=== PATIENT | female | born 1965 | race Caucasian/White ===

== ENCOUNTER 2016-09-09 10:25 | Emergency (ER) | payer OTHER ==
[2016-09-09 10:30] VITALS: BP 141/88; PULSE 67; TEMP 97.9; BMI 24.4
[2016-09-09] MEDS ORDERED: KETOROLAC TROMETHAMINE 60 MG/2 ML VIAL IM ONE (12:13)
[2016-09-09] MEDS ORDERED: CYCLOBENZAPRINE HCL 10 MG TABLET (FP) PO ONE (12:14)
[2016-09-09] MEDS ORDERED: KETOROLAC TROMETHAMINE 60 MG/2 ML VIAL ONE (12:15)
--- NOTE | 2016-09-09 12:20 | PDOC ---
History of Present Illness - General Chief Complaint: Back Pain Stated Complaint: LOWER BACK PAIN Time Seen by Provider: 09/09/16 11:54 History Source: Patient Exam Limitations: No Limitations - History of Present Illness Initial Comments: 09/09/16 12:17 CHIEF COMPLAINT: Lower back pain right sided HISTORY OF PRESENT ILLNESS: Patient is a 51-year-old female with a history of seizures last 6 months ago and anemia here today due to right sided lower back pain that occurred suddenly as patient was standing and turned her torso quickly towards the left. Patient reports that pain is worse with movement or ambulation. Patient denies any radiation of pain down the legs or any numbness of legs or any saddle anesthesia. Patient denies having any previous back issues in the past. Patient reports that pain is aching and is currently an 8 out of 10. 09/09/16 12:19 09/09/16 12:20 Occurred: reports: this morning Severity: reports: moderate Pain Location: reports: back (right sided lower back ) Method of Injury: Yes: other (turning at torso laterally at work today ) Modifying Factors: improves with: immobilization Loss of Consciousness: no loss of consciousness Associated Symptoms (Fall): muscle spasms (right lower back ) Past History - Past Medical History Allergies/Adverse Reactions: Allergies Allergy/AdvReac Type Severity Reaction Status Date / Time No Known Allergies Allergy Verified 09/09/16 10:30 Home Medications: Ambulatory Orders Naproxen [Naprosyn -] 500 mg PO BID PRN #14 tablet MDD 2 09/09/16 Anemia: Yes (vitamin D level low) Seizures: Yes (6MONTHS AGO WAS LAST) - Surgical History Abdominal Surgery: (UTERUS REMOVED) Cholecystectomy: Yes - Immunization History Immunization Up to Date: Yes - Psycho/Social/Smoking Cessation Hx Anxiety: No Suicidal Ideation: No Smoking Status: No Smoking History: Never smoked Number of Cigarettes Smoked Daily: 0 Hx Alcohol Use: No Drug/Substance Use Hx: No Substance Use Type: None Hx Substance Use Treatment: No Review of Systems - Review of Systems Able to Perform ROS?: Yes Constitutional: No: Symptoms Reported HEENTM: No: Symptoms Reported Respiratory: No: Symptoms reported Cardiac (ROS): No: Symptoms Reported ABD/GI: No: Symptoms Reported : No: Symptoms Reported Musculoskeletal: Yes: Back Pain (right sided lower back pain ) Integumentary: No: Symptoms Reported Neurological: No: Symptoms reported *Physical Exam - Vital Signs Last Vital Signs Temp Pulse Resp BP Pulse Ox 97.9 F 67 16 141/88 99 09/09/16 10:26 09/09/16 10:26 09/09/16 10:26 09/09/16 10:09/09/16 10:26 - Physical Exam General Appearance: Yes: Appropriately Dressed Respiratory/Chest: positive: Lungs Clear, Normal Breath Sounds. negative: Chest Tender, Respiratory Distress Cardiovascular: positive: Regular Rhythm, Regular Rate, S1, S2 Musculoskeletal: positive: Normal Inspection, Decreased Range of Motion (with flexion at waist ), Muscle Spasm (rt. lumbar paraspinal muscles ). negative: CVA Tenderness, CVA Tenderness (R), CVA Tenderness (L), Vertebral Tenderness Extremity: positive: Normal Capillary Refill, Normal Inspection, Normal Range of Motion Integumentary: positive: Normal Color Neurologic: positive: Alert, Normal Response, Motor Strength 5/5 (legs b/ll ), Respond to painful stimul, Responsive, Other (negative SLR b/l ). negative: Sensory Deficit (b/l legs ) Deep Tendon Reflexes: Ankle (L): 4+, Ankle (R): 4+, Knee (L): 4+, Knee (R): 4+ Medical Decision Making - Medical Decision Making 09/09/16 12:19 Patient is a 51-year-old female with a history of seizures last 6 months ago and anemia here today due to right sided lower back pain that occurred suddenly as patient was standing and turned her torso quickly towards the left. Patient reports that pain is worse with movement or ambulation. Patient denies any radiation of pain down the legs or any numbness of legs or any saddle anesthesia. Patient denies having any previous back issues in the past. Patient reports that pain is aching and is currently an 8 out of 10. Right sided lower back pain with muscle spasm Plan: Toradol milligrams IM now flexeril 10 mg po now 09/09/16 13:23 feeling much better will discharge to home naprosyn 500 mg bid prn # 14 tabs follow up with ortho *DC/Admit/Observation/Transfer Diagnosis at time of Disposition: Low back pain Qualifiers: Chronicity: acute Back pain laterality: right Sciatica presence: without sciatica Qualified Code(s): M54.5 - Low back pain - Discharge Dispostion Disposition: HOME Condition at time of disposition: Stable - Patient Instructions Additional Instructions: Follow-up with orthopedist if pain continues Return to emergency room if any numbness of groin or legs or weakness of legs or any incontinency Avoid any strenuous activities or exercise When you are turning from your way she must turn your body towards the direction that she will return in incentive twisting action her waist Patient voiced understanding of discharge instructions and all questions were answered
[2016-09-09] MEDS ORDERED: CYCLOBENZAPRINE HCL 10 MG TABLET (FP) ONE (12:21)
== END 2016-09-09 13:30 | disposition home or self-care (01) ==
LOC: JERFT 10:25
PROC: 3E0233Z Introduction of Anti-inflammatory into Muscle, Percutaneous Approach (ICD-10-PCS; principal; 2016-09-09)
DX: M54.5 Low back pain (principal); X58.XXXA Exposure to other specified factors, initial encounter; Y93.89 Activity, other specified; Y92.9 Unspecified place or not applicable; D64.9 Anemia, unspecified
CPT/HCPCS: 96372; 99281-25

== ENCOUNTER 2016-11-27 19:24 | Emergency (ER) | payer OTHER ==
[2016-11-27 19:32] VITALS: BP 137/72; PULSE 88; TEMP 98.4; BMI 55.0
--- NOTE | 2016-11-27 19:49 | PDOC ---
History of Present Illness - General History Source: Patient, Family Exam Limitations: No Limitations - History of Present Illness Initial Comments: 11/27/16 19:49 The patient is a 51 year old female, with a significant past medical history of seizures and anemia, who presents to the emergency department with right sided abdominal pain that radiates to her back. For about a few days. The reports recently her pain has started to radiate to her upper back, chest, and RUE area. She also complains of having nausea associated with her pain. The patient reports about 6 months ago having an Ultrasound that showed an inflamed liver. She denies recent fevers, chills, headache or dizziness. She denies recent vomit , diarrhea or constipation. She denies recent dysuria, frequency, urgency or hematuria. She denies recent shortness of breath. PAST MEDICAL HISTORY: See HPI PAST SURGICAL HISTORY: Cholecystectomy FAMILY HISTORY: No pertinent history. SOCIAL HISTORY: Patient lives with family and is employed. MEDICATIONS: Reviewed. ALLERGIES: As per nursing notes. ROS General: No fevers or chills, no weakness, no weight loss HEENT: No change in vision. No sore throat. No ear pain CardioVascular: No chest pain or shortness of breath Respiratory:No cough, or wheezing. Gastrointestinal: +abdominal pain and nausea. No vomiting, diarrhea or constipation. No rectal bleeding Genitourinary: No dysuria, hematuria, or frequency Musculoskeletal: No joint or muscle pain or swelling Neurologic: No headache, vertigo, dizziness or loss of consciousness Psychiatric: No depression Skin: No rashes or easy bruising Endocrine: no increased thirst or abnormal weight change Allergic: no skin or latex allergy All other systems reviewed and normal Exam: General: Well-nourished well-developed individual, no acute distress HEENT: Throat: Normal, tonsils normal, no erythema or exudate Neck: Supple, no meningeal signs, no lymphadenopathy Eyes: Pupils equal reactive and round, extraocular motion intact Chest: Nontender to palpation Cardiac: S1-S2 normal, regular rate and rhythm, no murmurs rubs or gallops Respiratory: Lungs clear to auscultation bilateral Abdomen: Tenderness RUQ. No guarding or rebound. Soft, nondistended, normal bowel sounds. Extremities: Warm, dry, no cyanosis, clubbing, or edema Skin: No rashes Neuro: Alert and oriented x3, nonfocal exam, grossly intact, normal gait Psych: Normal mood and affect <Jonathan Fowler - Last Filed: 11/27/16 19:49> - General History Source: Patient Exam Limitations: No Limitations - History of Present Illness Initial Comments: 11/27/16 21:58 A portion of this note was documented by scribe services under my direction. I have reviewed the details of the note, within reason, and agree with the documentation. The case summary and management plan written by me. EKG shows normal sinus rhythm at a rate of [address]-T wave changes questionable Q's in V1 and V2 otherwise normal EKG Chest x-ray reviewed by me no acute pathology Assessment and plan: This is a 51-year-old female who comes in complaining of pain all along her whole right side including shoulder, back, flank chest and abdomen. Patient had a cardiogram, complete workup including CBC, comp, d-dimer and cardiac enzymes. Patient also had a chest x-ray. Patient's workup was negative. Patient was given Toradol and pain was much improved. Patient discharged home told she can continue to take ibuprofen for the pain and follow-up with her doctor tomorrow morning. <Edwige Azul I - Last Filed: 11/27/16 22:00> - General Chief Complaint: Pain Stated Complaint: R SIDED ABD PAIN RAD TO BACK Time Seen by Provider: 11/27/16 19:26 Past History <Jonathan Fowler - Last Filed: 11/27/16 19:49> - Past Medical History Anemia: Yes (vitamin D level low) Seizures: Yes (6MONTHS AGO WAS LAST) - Surgical History Abdominal Surgery: (UTERUS REMOVED) Cholecystectomy: Yes - Immunization History Immunization Up to Date: Yes - Psycho/Social/Smoking Cessation Hx Anxiety: No Suicidal Ideation: No Smoking Status: No Smoking History: Unknown if ever smoked Have you smoked in the past 12 months: No Number of Cigarettes Smoked Daily: 0 Information on smoking cessation initiated: No Hx Alcohol Use: No Drug/Substance Use Hx: No Substance Use Type: None Hx Substance Use Treatment: No <Edwige Azul I - Last Filed: 11/27/16 22:00> - Past Medical History Allergies/Adverse Reactions: Allergies Allergy/AdvReac Type Severity Reaction Status Date / Time No Known Allergies Allergy Verified 09/09/16 10:30 Home Medications: Ambulatory Orders OXcarbazepine [Trileptal] 300 mg PO BID 11/27/16 *Physical Exam - Vital Signs Last Vital Signs Temp Pulse Resp BP Pulse Ox 98.4 F 88 14 137/72 98 11/27/16 19:27 11/27/16 19:27 11/27/16 19:27 11/27/16 19:27 11/27/16 19:27 <Jonathan Fowler - Last Filed: 11/27/16 19:49> - Vital Signs Last Vital Signs Temp Pulse Resp BP Pulse Ox 98.4 F 88 14 137/72 98 11/27/16 19:27 11/27/16 19:27 11/27/16 19:27 11/27/16 19:27 11/27/16 19:27 <Edwige Azul I - Last Filed: 11/27/16 22:00> ED Treatment Course - LABORATORY CBC & Chemistry Diagram: 11/27/16 19:51 11/27/16 19:51 <Edwige Azul I - Last Filed: 11/27/16 22:00> *DC/Admit/Observation/Transfer - Attestations Scribe Attestion: 11/27/16 19:49 Documentation prepared by Jonathan Fowler, acting as director medical surgical for Edwige Azul MD. <Jonathan Fowler - Last Filed: 11/27/16 19:49> - Discharge Dispostion Admit: No <Edwige Azul I - Last Filed: 11/27/16 22:00> Diagnosis at time of Disposition: Muscular abdominal pain in right flank - Discharge Dispostion Disposition: HOME Condition at time of disposition: Good - Patient Instructions Additional Instructions: For the pain take ibuprofen 3 tablets 3 times a day with food don't take on an empty stomach. Follow-up with your doctor in 1 week if not better Return to the emergency department immediately with ANY new, persistent or worsening symptoms. Continue any medications as previously prescribed by your physician. You should follow up with your primary doctor as soon as possible regarding today's emergency department visit. . Please make sure your doctor reviews the results of your emergency evaluation. Thank you for coming to the Emergency Department today for your care. It was a pleasure to see you today. Please note that your evaluation is INCOMPLETE until you follow-up with your doctor.
[2016-11-27] MEDS ORDERED: SODIUM CHLORIDE 1,000 ML IV ONE (19:53)
[2016-11-27] MEDS ORDERED: ONDANSETRON *ODT* 4 MG TABLET SL ONE (19:53)
[2016-11-27] MEDS ORDERED: KETOROLAC TROMETHAMINE 30 MG/1 ML VIAL IVPUSH ONE (19:53)
[2016-11-27] MEDS ORDERED: KETOROLAC TROMETHAMINE 30 MG/1 ML VIAL ONE (19:57)
[2016-11-27] MEDS ORDERED: ONDANSETRON 4 MG/2 ML VIAL ONE (19:57)
[2016-11-27 20:21] LABS: URINE APPEARANCE Clear; URINE BILIRUBIN Negative (NEGATIVE); URINE BLOOD Negative (NEGATIVE); URINE GLUCOSE (UA) Negative (NEGATIVE); URINE KETONE Trace (NEGATIVE); URINE LEUK ESTERASE Trace (NEGATIVE); URINE NITRITE Positive (NEGATIVE); URINE PROTEIN Negative (NEGATIVE); URINE UROBILINOGEN 0.2 E.U/dl (0.2-1.0)
[2016-11-27 20:22] LABS: URINE COLOR YELLOW
[2016-11-27 20:29] LABS: EOSINOPHIL 7.7 % (0-4.5); MCHC 34.3 g/dl (32.0-36.0); MEAN CELL VOLUME 90.4 fl (80-96); MEAN PLT VOLUME 7.7 fl (7.5-11.1); NEUTROPHILS 40.4 % (42.8-82.8); PLATELET COUNT 282 K/MM3 (134-434); RDW 12.7 % (11.6-15.6); WHITE BLOOD COUNT 7.7 K/mm3 (4.0-10.8)
[2016-11-27 20:41] LABS: ALBUMIN 4.1 g/dl (3.5-5.0); ALK PHOS 80 U/L (32-92); ANION GAP 9 (8-16); BILIRUBIN,TOTAL 0.5 mg/dl (0.2-1.0); CALCIUM 8.9 mg/dl (8.4-10.2); CO2 27 mmol/L (22-28); CREATININE 0.7 mg/dl (0.6-1.3); GLUCOSE,RANDOM 150 mg/dl (74-106); SGOT/AST 31 U/L (10-42); SGPT/ALT 32 U/L (10-40); TOT PROT 6.7 g/dl (6.4-8.3)
[2016-11-27 20:42] LABS: CPK(DFH) 339 IU/L (26-140)
[2016-11-27 21:04] LABS: TROPONIN I (DFP) < 0.03 ng/ml (0.03-0.50)
[2016-11-27 21:05] LABS: CK MB 1.1 ng/ml (0.3-4.0)
--- NOTE | 2016-11-28 12:57 | EKG ---
Test Reason : Blood Pressure : / mmHG Vent. Rate : 066 BPM Atrial Rate : 066 BPM P-R Int : 164 ms QRS Dur : 088 ms QT Int : 428 ms P-R-T Axes : 040 061 058 degrees QTc Int : 448 ms NORMAL SINUS RHYTHM CANNOT RULE OUT SEPTAL INFARCT (CITED ON OR BEFORE 30-AUG-2009) ABNORMAL ECG WHEN COMPARED WITH ECG OF 16-JUN-2012 22:39, NO SIGNIFICANT CHANGE WAS FOUND Confirmed by ALYSHA ROJAS MD ([id number]) on 11/28/2016 12:57:28 PM Referred By: MD BOND Confirmed By:ALYSHA ROJAS MD
== END 2016-11-27 22:21 | disposition home or self-care (01) ==
LOC: FER 19:24
PROC: 3E0333Z Introduction of Anti-inflammatory into Peripheral Vein, Percutaneous Approach (ICD-10-PCS; principal; 2016-11-27)
PROC: 3E0337Z Introduction of Electrolytic and Water Balance Substance into Peripheral Vein, Percutaneous Approach (ICD-10-PCS; 2016-11-27)
DX: R10.31 Right lower quadrant pain (principal); M79.1 Myalgia; D64.9 Anemia, unspecified
CPT/HCPCS: 36415; 71010-TC; 80053; 81003; 82550; 82553; 83690; 84484; 85025; 85379; 93005; 96361; 96374; 99284-25

== ENCOUNTER 2018-02-14 15:42 | Emergency (ER) | payer OTHER ==
[2018-02-14 15:45] VITALS: BMI 24.4
--- NOTE | 2018-02-14 16:12 | PDOC ---
History of Present Illness - General Chief Complaint: Sore Throat Stated Complaint: THROAT PAIN - History of Present Illness Initial Comments: 52-year-old female with history of seizures presents for evaluation of throat pain which radiates down her arms for 2 days however today's getting worse. She has no other associated symptoms. Her pain is exacerbated with deep breaths minimally relieved with rest it's been constant over the last 2 days. She points to the central part of her throat as well as the upper portion of her anterior chest wall as the areas of her discomfort. 02/14/18 16:10 Past History - Past Medical History Allergies/Adverse Reactions: Allergies Allergy/AdvReac Type Severity Reaction Status Date / Time No Known Allergies Allergy Verified 02/14/18 15:45 Home Medications: Ambulatory Orders OXcarbazepine [Trileptal] 300 mg PO BID 11/27/16 Anemia: Yes (vitamin D level low) COPD: No Seizures: Yes (6MONTHS AGO WAS LAST) - Surgical History Abdominal Surgery: (UTERUS REMOVED) Cholecystectomy: Yes - Immunization History Immunization Up to Date: Yes - Suicide/Smoking/Psychosocial Hx Smoking Status: No Smoking History: Unknown if ever smoked Have you smoked in the past 12 months: No Number of Cigarettes Smoked Daily: 0 Hx Alcohol Use: No Drug/Substance Use Hx: No Substance Use Type: None Hx Substance Use Treatment: No Review of Systems - Review of Systems HEENTM: Yes: Throat Pain Cardiac (ROS): Yes: Chest Pain All Other Systems: Reviewed and Negative *Physical Exam - Vital Signs Last Vital Signs Temp Pulse Resp BP Pulse Ox 97.9 F 67 18 129/80 99 02/14/18 15:43 02/14/18 15:43 02/14/18 15:43 02/14/18 15:43 02/14/18 15:43 - Physical Exam Comments: GENERAL: The patient is awake, alert, and fully oriented, in no acute distress. HEAD: Normal with no signs of trauma. EYES: Pupils equal, round and reactive to light, extraocular movements intact, sclera anicteric, conjunctiva clear. ENT: Ears normal, nares patent, oropharynx clear without exudates. Moist mucous membranes. NECK: Normal range of motion, supple without lymphadenopathy, JVD, or masses. LUNGS: Breath sounds equal, clear to auscultation bilaterally. No wheezes, and no crackles. HEART: Regular rate and rhythm, normal S1 and S2 without murmur, rub or gallop. ABDOMEN: Soft, nontender, normoactive bowel sounds. No guarding, no rebound. No masses. EXTREMITIES: Normal range of motion, no edema. No clubbing or cyanosis. No cords, erythema, or tenderness. NEUROLOGICAL: Cranial nerves II through XII grossly intact. Normal speech, normal gait. PSYCH: Normal mood, normal affect. SKIN: Warm, Dry, normal turgor, no rashes or lesions noted. 02/14/18 16:11 ED Treatment Course - RADIOLOGY Radiology Studies Ordered: Category Date Time Status CHEST PA & LAT [RAD] Stat Radiology 02/14/18 16:10 Ordered Medical Decision Making - Medical Decision Making Given her age and symptoms I feel this should be a cardiac workup I will transfer to the main emergency room. 02/14/18 16:11 *DC/Admit/Observation/Transfer Diagnosis at time of Disposition: Throat pain in adult - Referrals - Patient Instructions - Post Discharge Activity
[2018-02-14 16:31] LABS: BASO % 0.5 % (0-2.0); EOS % 5.7 % (0-4.5); HEMATOCRIT 42.8 % (32.4-45.2); HEMOGLOBIN 14.4 GM/dL (10.7-15.3); LYMPH % 32.8 % (8-40); MCH 30.2 pg (25.7-33.7); MCHC 33.6 g/dl (32.0-36.0); MEAN CELL VOLUME 89.7 fl (80-96); MEAN PLT VOLUME 7.7 fl (7.5-11.1); MONO % 6.4 % (3.8-10.2); NEUT % 54.6 % (42.8-82.8); PLATELET COUNT 283 K/MM3 (134-434); RBC 4.77 M/mm3 (3.60-5.2); RDW 13.1 % (11.6-15.6)
[2018-02-14 16:53] LABS: ALBUMIN 4.5 g/dl (3.4-5.0); ANION GAP 8 (8-16); BILIRUBIN,TOTAL 0.3 mg/dL (0.2-1.0); BLOOD UREA NITROGEN 14 mg/dL (7-18); CHLORIDE 107 mmol/L (98-107); CO2 27 mmol/L (21-32); CREATININE 0.7 mg/dL (0.55-1.02); GLUCOSE,RANDOM 100 mg/dL (74-106); POTASSIUM 4.4 mmol/L (3.5-5.1); SGOT/AST 18 U/L (15-37); SGPT/ALT 41 U/L (12-78); SODIUM 142 mmol/L (136-145); TOT PROT 7.9 g/dl (6.4-8.2)
[2018-02-14 16:54] LABS: ALK PHOS 105 U/L (45-117)
--- NOTE | 2018-02-14 17:29 | PDOC ---
*Physical Exam - Vital Signs Last Vital Signs Temp Pulse Resp BP Pulse Ox 97.9 F 67 18 129/80 99 02/14/18 15:43 02/14/18 15:43 02/14/18 15:43 02/14/18 15:43 02/14/18 15:43 ED Treatment Course - LABORATORY CBC & Chemistry Diagram: 02/14/18 16:24 02/14/18 16:24 - ADDITIONAL ORDERS Additional order review: Laboratory Results 02/14/18 02/14/18 02/14/18 16:24 16:24 16:24 D-Dimer 225 Sodium 142 Potassium 4.4 Chloride 107 Carbon Dioxide 27 Anion Gap 8 BUN 14 Creatinine 0.7 Creat Clearance w eGFR > 60 Random Glucose 100 Calcium 9.0 Total Bilirubin 0.3 AST 18 ALT 41 Alkaline Phosphatase 105 Troponin I < 0.02 Total Protein 7.9 Albumin 4.5 02/14/18 16:24 RBC 4.77 MCV 89.7 MCHC 33.6 RDW 13.1 MPV 7.7 Neutrophils % 54.6 Lymphocytes % 32.8 Monocytes % 6.4 Eosinophils % 5.7 H Basophils % 0.5 Medical Decision Making - Medical Decision Making 02/14/18 17:28 Patient seen and evaluated with the nurse practitioner. I agree with the overall evaluation, assessment, and management with the following summary of visit: 52y/o F with no sig pmh p/w throat/upper chest and arm pain. no cough/f/c. VSS exam as noted 52y/o F with atypical chest pain, low heart score and normal ekg. labs, cxr, ekg trop x2 given relatively low risk. If wnl, can d/c with pmd f/u. *DC/Admit/Observation/Transfer Diagnosis at time of Disposition: Throat pain in adult - Referrals - Patient Instructions - Post Discharge Activity
--- NOTE | 2018-02-14 17:41 | PDOC ---
*Physical Exam - Vital Signs Last Vital Signs Temp Pulse Resp BP Pulse Ox 97.9 F 67 18 129/80 99 02/14/18 15:43 02/14/18 15:43 02/14/18 15:43 02/14/18 15:43 02/14/18 15:43 ED Treatment Course - LABORATORY CBC & Chemistry Diagram: 02/14/18 16:24 02/14/18 16:24 - ADDITIONAL ORDERS Additional order review: Laboratory Results 02/14/18 16:24 D-Dimer 225 02/14/18 16:24 RBC 4.77 MCV 89.7 MCHC 33.6 RDW 13.1 MPV 7.7 Neutrophils % 54.6 Lymphocytes % 32.8 Monocytes % 6.4 Eosinophils % 5.7 H Basophils % 0.5 Medical Decision Making - Medical Decision Making 02/14/18 17:00 Patient received in sign out from DALE Heard. Patient here with complaints of throat pain for the past few days reading to her upper chest and shoulders. Patient describes the pain as an aching sensation without aggravating or alleviating factors. Patient denies difficulty swallowing, difficulty breathing , weakness or diaphoresis. Patient has a history of seizures and denies drug or alcohol use. Patient for cardiac workup will have repeat troponins within 3 hours from first collection 02/14/18 18:02 Laboratory Tests 02/14/18 02/14/18 02/14/18 16:24 16:24 16:24 WBC 8.0 Hgb 14.4 Hct 42.8 Neutrophils % 54.6 Eosinophils % 5.7 H D-Dimer Sodium 142 Potassium 4.4 Chloride 107 Carbon Dioxide 27 Anion Gap 8 BUN 14 Creatinine 0.7 Random Glucose 100 Calcium 9.0 Total Bilirubin 0.3 AST 18 ALT 41 Alkaline Phosphatase 105 Troponin I < 0.02 Total Protein 7.9 Albumin 4.5 02/14/18 16:24 WBC Hgb Hct Neutrophils % Eosinophils % D-Dimer 225 Sodium Potassium Chloride Carbon Dioxide Anion Gap BUN Creatinine Random Glucose Calcium Total Bilirubin AST ALT Alkaline Phosphatase Troponin I Total Protein Albumin Chest x-ray negative for acute findings. Patient be ordered for Toradol since complaints of discomfort to her throat but relieved upper chest and arms. *DC/Admit/Observation/Transfer Diagnosis at time of Disposition: Throat pain in adult - Referrals - Patient Instructions - Post Discharge Activity
[2018-02-14] MEDS ORDERED: KETOROLAC TROMETHAMINE 30 MG/1 ML VIAL IVPUSH ONE (17:49)
[2018-02-14] MEDS ORDERED: KETOROLAC TROMETHAMINE 30 MG/1 ML VIAL ONE (18:06)
--- NOTE | 2018-02-14 19:24 | PDOC ---
*Physical Exam - Vital Signs Last Vital Signs Temp Pulse Resp BP Pulse Ox 97.9 F 67 18 129/80 99 02/14/18 15:43 02/14/18 15:43 02/14/18 15:43 02/14/18 15:43 02/14/18 15:43 ED Treatment Course - LABORATORY CBC & Chemistry Diagram: 02/14/18 16:24 02/14/18 16:24 - ADDITIONAL ORDERS Additional order review: Laboratory Results 02/14/18 02/14/18 02/14/18 16:24 16:24 16:24 D-Dimer 225 Sodium 142 Potassium 4.4 Chloride 107 Carbon Dioxide 27 Anion Gap 8 BUN 14 Creatinine 0.7 Creat Clearance w eGFR > 60 Random Glucose 100 Calcium 9.0 Total Bilirubin 0.3 AST 18 ALT 41 Alkaline Phosphatase 105 Troponin I < 0.02 Total Protein 7.9 Albumin 4.5 02/14/18 16:24 RBC 4.77 MCV 89.7 MCHC 33.6 RDW 13.1 MPV 7.7 Neutrophils % 54.6 Lymphocytes % 32.8 Monocytes % 6.4 Eosinophils % 5.7 H Basophils % 0.5 - Medications Given in the ED: ED Medications Discontinued Medications Generic Name Dose Route Start Last Admin Trade Name Freq PRN Reason Stop Dose Admin Ketorolac Tromethamine 30 mg 02/14/18 17:49 02/14/18 18:05 Toradol Injection - IVPUSH 02/14/18 17:50 30 mg ONCE ONE Administration Medical Decision Making - Medical Decision Making 02/14/18 20:08 Received signout from REUBEN Hernández. Briefly this is a patient's presents with throat pain radiating to her chest on the left side. Patient without any significant cardiac history without EKG changes on initial EKG and normal troponin at this time. Patient is pending a second troponin and can likely be discharged to her primary doctor if second troponin is negative. Repeat EKG reveals sinus rhythm with rate of 66. Normal intervals noted. Flipped T waves noted in V2. Given the ceiling change in isolation most likely from lead placement. 02/14/18 20:32 Review of chest x-ray shows no acute pulmonary process at this time. Repeat troponin is less than 0.02. Previous d-dimer of 225 noted. There are negative lab work and EKG changes, I feel it is safe to discharge the patient home for continued evaluation by her primary doctor. I discussed the physical exam findings, ancillary test results and final diagnoses with the patient. I answered all of the patient's questions. The patient was satisfied with the care received and felt comfortable with the discharge plan and treatment plan. The patient will call their primary care physician within 24 hours to arrange follow-up and will return to the Emergency Department with any new, persistent or worsening symptoms. *DC/Admit/Observation/Transfer Diagnosis at time of Disposition: Throat pain in adult - Discharge Dispostion Disposition: HOME Condition at time of disposition: Fair Decision to Admit order: No - Referrals Referrals: Yoni Campa [Primary Care Provider] - - Patient Instructions Additional Instructions: You may take Tylenol or Motrin as needed for throat pain. Follow casting supervisor's instructions for appropriate dosage. Any evaluation received in the emergency department is incomplete. Please follow -up with your primary doctor for continued evaluation of your throat pain. You may use throat lozenges to help with her throat discomfort into your primary doctor could do further evaluation. Return to emergency department for worsening pain, shortness of breath, difficulty swallowing, dizziness, headache, abdominal pain or any other concerns. Thank you very much for choosing us to provide your emergent health care needs. - Post Discharge Activity
[2018-02-14 21:28] VITALS: BP 129/72; PULSE 73; TEMP 98.2
--- NOTE | 2018-02-15 14:16 | EKG ---
Test Reason : Blood Pressure : / mmHG Vent. Rate : 066 BPM Atrial Rate : 066 BPM P-R Int : 156 ms QRS Dur : 076 ms QT Int : 440 ms P-R-T Axes : 035 039 041 degrees QTc Int : 461 ms POOR DATA QUALITY, INTERPRETATION MAY BE ADVERSELY AFFECTED NORMAL SINUS RHYTHM SEPTAL INFARCT (CITED ON OR BEFORE 30-AUG-2009) ABNORMAL ECG WHEN COMPARED WITH ECG OF 27-NOV-2016 19:55, NO SIGNIFICANT CHANGE WAS FOUND Confirmed by Samson Clemente ([id number]) on 02/15/2018 2:16:32 PM Referred By: Confirmed By:Samson Clemente
--- NOTE | 2018-02-15 14:17 | EKG ---
Test Reason : Blood Pressure : / mmHG Vent. Rate : 063 BPM Atrial Rate : 063 BPM P-R Int : 154 ms QRS Dur : 092 ms QT Int : 450 ms P-R-T Axes : 051 053 054 degrees QTc Int : 460 ms NORMAL SINUS RHYTHM SEPTAL INFARCT (CITED ON OR BEFORE 30-AUG-2009) ABNORMAL ECG WHEN COMPARED WITH ECG OF 27-NOV-2016 19:55, NO SIGNIFICANT CHANGE WAS FOUND Confirmed by Samson Clemente ([id number]) on 02/15/2018 2:16:54 PM Referred By: Confirmed By:Samson Clemente
== END 2018-02-14 21:09 | disposition home or self-care (01) ==
LOC: JERFT 15:42 → JER 15:42
PROC: 3E0333Z Introduction of Anti-inflammatory into Peripheral Vein, Percutaneous Approach (ICD-10-PCS; principal; 2018-02-14)
DX: R07.0 Pain in throat (principal); D64.9 Anemia, unspecified; Z86.69 Personal history of other diseases of the nervous system and sense organs
CPT/HCPCS: 36415; 71046-TC-FY; 80053; 82550; 84484; 85025; 85379; 93005; 93010; 99282-25

== ENCOUNTER 2023-01-09 16:52 | Emergency (ER) | payer OTHER ==
[2023-01-09] MEDS ORDERED: oxyCODONE HCL 5 MG TABLET PO ONE (17:10)
[2023-01-09] MEDS ORDERED: LIDOCAINE 5% TOPICAL PATCH TP ONE (17:11)
[2023-01-09] MEDS ORDERED: LIDOCAINE 5% TOPICAL PATCH ONE (17:13)
[2023-01-09] MEDS ORDERED: oxyCODONE HCL 5 MG TABLET ONE (17:13)
[2023-01-09 17:14] VITALS: BP 146/95; PULSE 66; RESP 15; TEMP 98; BMI 23.3
[2023-01-09] MEDS ORDERED: LIDOCAINE PATCH REMOVAL MC SCH (22:00)
== END 2023-01-09 20:32 | disposition home or self-care (01) ==
LOC: SUPCPDRO 16:52 → FER 16:52
DX: M54.50 Low back pain, unspecified (principal)
CPT/HCPCS: 72131-TC; 99284-25